=== PATIENT | female | born 1955 | race Caucasian/White ===

== ENCOUNTER → 2017-10-01 | Outpatient (CLI) | payer BC | LOC: MAMMO 14:28 | DX: Z12.31 Encounter for screening mammogram for malignant neoplasm of breast (principal); Z98.82 Breast implant status ==

== ENCOUNTER 2019-09-09 11:35 | Emergency (ER) | payer BC ==
[~2019-09-09] VITALS: Wt 85.8 kg
[2019-09-09] MEDS ORDERED: SIMVASTATIN10 M1 PO (11:45)
[2019-09-09 12:05] LABS: HEMATOCRIT 40.6 % (37.0-47.0); HEMOGLOBIN 13.4 g/dL (12.5-16.0); MEAN CELL VOLUME 89 fl (78-100); MEAN CORPUSCULAR HEMOGLOBIN 29 pg (27-31); MEAN CORPUSCULAR HGB CONC 33 g/dL (33-37); MEAN PLATELET VOLUME 10.4 fl (7.4-10.4); PLATELET COUNT 167 K/mm3 (130-400); RED BLOOD COUNT 4.56 M/mm3 (4.10-5.30); RED CELL DISTRIBUTION WIDTH 13.2 % (11.5-14.5); WHITE BLOOD COUNT 4.6 K/mm3 (4.8-10.8)
[2019-09-09 12:13] LABS: POTASSIUM 3.6 mmol/L (3.5-5.1)
[2019-09-09 12:14] LABS: SODIUM 138 mmol/L (136-145)
[2019-09-09 12:15] LABS: CALCIUM 8.7 mg/dL (8.3-10.5)
[2019-09-09 12:16] LABS: GLUCOSE 130 mg/dL (65-105); TOTAL PROTEIN 7.2 g/dL (6.2-8.1)
[2019-09-09 12:17] LABS: CARBON DIOXIDE 24 mmol/L (23-31)
[2019-09-09 12:18] LABS: TOTAL BILIRUBIN 0.4 mg/dL (0.2-1.2)
[2019-09-09 12:21] LABS: AST-SGOT 31 U/L (5-34)
[2019-09-09 12:22] LABS: ALT/SGPT 30 U/L (0-55)
[2019-09-09 12:25] LABS: BAND 4 % (0-10); LYMPHOCYTE 18 % (20-51); MONOCYTE 12 % (3-10); NEUTROPHILS 66 % (42-75)
[2019-09-09 12:30] LABS: TROPONIN-I < 0.03 ng/mL (<0.030)
[2019-09-09 14:02] LABS: URINE APPEARANCE CLEAR; URINE BILIRUBIN NEGATIVE (NEGATIVE); URINE COLOR YELLOW; URINE GLUCOSE NEGATIVE (NEGATIVE); URINE KETONE TRACE (NEGATIVE); URINE NITRATE NEGATIVE (NEGATIVE); URINE PROTEIN(semi-quant) NEGATIVE (NEGATIVE); URINE UROBILINOGEN NORMAL (NORMAL)
[2019-09-09 14:03] LABS: URINE BLOOD NEGATIVE (NEGATIVE); URINE LEUKOCYTE ESTERASE NEGATIVE (NEGATIVE); URINE MUCUS PRESENT (NOT PRESENT)
[2019-09-09 14:52] VITALS: BP 131/65
[2019-09-09] MEDS ORDERED: ZOLOFT 50MG50 MG PO (15:01)
== END 2019-09-09 15:07 | disposition home or self-care (01) ==
LOC: ED 11:35
PROVIDERS: Physician Assistant
DX: R55 Syncope and collapse (principal); F41.9 Anxiety disorder, unspecified; E86.0 Dehydration
CPT/HCPCS: J7030

== ENCOUNTER → 2019-10-02 | Outpatient (CLI) | payer BC ==
[2019-09-09 14:52] VITALS: BP 131/65
[~2019-10-02] MED LIST: SIMVASTATIN10 M1 PO; ZOLOFT 50MG50 MG PO
== END ==
LOC: CARDLAB 09-25 09:21 → CARDREHAB 08:49 → CARDLAB 14:07
DX: R07.9 Chest pain, unspecified (principal)
CPT/HCPCS: A9500

== ENCOUNTER → 2019-12-16 | Outpatient (CLI) | payer BC | LOC: MAMMO 13:45 | DX: Z12.31 Encounter for screening mammogram for malignant neoplasm of breast (principal) ==

== ENCOUNTER → 2021-09-25 | Outpatient (CLI) | payer MEDICARE, OTHER ==
[2021-09-25 12:47] LABS: ALBUMIN 4.1 g/dL (3.4-4.8)
[2021-09-25 12:48] LABS: CALCIUM 9.4 mg/dL (8.3-10.5)
[2021-09-25 12:50] LABS: TOTAL PROTEIN 6.9 g/dL (6.2-8.1)
[2021-09-25 13:08] LABS: BASO # 0.03 K/mm3 (0.02-0.10); EOS # 0.16 K/mm3 (0.04-0.40); EOS % 2.7 % (1.0-5.0); HEMATOCRIT 39.3 % (37.0-47.0); HEMOGLOBIN 12.7 g/dL (12.5-16.0); MEAN CELL VOLUME 88 fl (78-100); MEAN CORPUSCULAR HEMOGLOBIN 28 pg (27-31); MEAN CORPUSCULAR HGB CONC 32 g/dL (33-37); MONO # 0.63 K/mm3 (0.20-0.80); NEU # 3.21 K/mm3 (1.40-6.50); PLATELET COUNT 295 K/mm3 (130-400); RED BLOOD COUNT 4.47 M/mm3 (4.10-5.30); WHITE BLOOD COUNT 5.8 K/mm3 (4.8-10.8)
[2021-09-25 14:19] LABS: TOTAL BILIRUBIN 0.5 mg/dL (0.2-1.2)
== END ==
LOC: LAB 11:49
PROVIDERS: Family Medicine
DX: E78.5 Hyperlipidemia, unspecified (principal); Z01.89 Encounter for other specified special examinations

== ENCOUNTER → 2023-02-28 | Day surgery (SDC) | payer MEDICARE, OTHER | END | disposition home or self-care (01) | LOC: MSO 07:29 | DX: Z12.11 Encounter for screening for malignant neoplasm of colon (principal); D12.2 Benign neoplasm of ascending colon; D12.3 Benign neoplasm of transverse colon | CPT/HCPCS: 00811; J2704; J7120 ==